=== PATIENT | female | born 1945 | race African-American/Black ===

== ENCOUNTER 2016-07-04 12:31 | Outpatient (CLI) | payer MEDICARE, OTHER ==
[~2016-07-04] VITALS: Ht 156.2 cm; Wt 108.1 kg
[2016-07-04] VITALS (13 sets, daily range): BP systolic 136–194; BP diastolic 60–83; PULSE 58–66; RESP 16–29; TEMP 97.6; O2SAT 94–100; Ht 156.2 cm; Wt 108.1 kg
[~2016-07-04 12:31] MED LIST: ACET-785 PO; ALBU6.7H4 IH; AMLO10TA2 PO; ASPI-1116 PO; CALC-278 PO; CLOP75TA PO; FA/M1TAB32 PO; FURO-33 PO; IPRA4AER PO; LORA10CA3 PO; MAGN400C PO; METO100T5 PO; NAPR-561 PO; NORMAL SALINE 1,000 ML IV SCH; PANT40TA27 PO; POTA20TA69 PO; PRED20TA PO; PREN-116 PO; TRAVATAN RIGHT EYE; VITA400C19 PO; [UNRECOGNIZED DRUG - OTHER] LEFT EYE
--- NOTE | 2016-07-04 12:37 | NUR ---
ADMIT PT ADMITTED TO ROOM 118 AT THIS TIME VIA AMBULATORY STATUS. PT REPOSITIONED SELF IN BED. PT ALERT AND ORIENTED. WILL CONTINUE TO MONITOR.
[2016-07-04] MEDS ORDERED: CHLO50TA PO (12:59)
[2016-07-04] MEDS ORDERED: POTA10CA37 PO (13:00)
--- NOTE | 2016-07-04 13:19 | HPPDOC ---
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 Mahoney who has a history of atherosclerotic heart disease, HTN, HLD, COPD nnrafael was seen in the clinic in April for recurrent precordial pain. She had an abnormal stress test in May which showed LAD ischemia. She is being admitted today for Left heart catheterization with possible PCI. 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 07/04/16 Metoprolol Tartrate (Metoprolol Tartrate) 100 Mg Tablet, 1 TAB PO BID 08/19/14 Vitamin E (Dl,Tocopheryl Acet) (Vitamin E) 400 Unit Capsule, 400 UNIT PO DAILY, CAP 08/19/14 Magnesium Oxide (Magnesium) 400 Mg Capsule, 800 MG PO DAILY, CAP 08/19/14 Pnv95/Ferrous Fumarate/FA ( Multivitamins Tablet) 1 Each Tablet, 1 TAB PO EVERY OTHER DAY, TAB 08/19/14 [Rachel-Optho] No Conflict Check, 1 DROP LEFT EYE PRN ARTIFICIAL LEFT EYE 08/19/14 [Travatan] No Conflict Check, 1 DROP RIGHT EYE HS 08/19/14 Ipratropium/Albuterol Sulfate (Combivent Respimat Inhal Godley) 120 Puff/4 Gm Inha, 1 PUFF PO QID, INHALER 11/19/13 Loratadine (Claritin) 10 Mg Capsule, 10 MG PO PRN 11/19/13 Amlodipine Besylate (Amlodipine Besylate) 10 Mg Tablet, 10 MG PO DAILY, TAB 11/19/13 Pantoprazole Sodium (Pantoprazole Sodium) 40 Mg Tablet.dr, 40 MG PO ACB, TAB Take 1 tablet, by mouth, daily before breakfast. 11/19/13 Naproxen Sodium (Aleve) 220 Mg Tablet, 220 MG PO PRN 02/15/10 Albuterol Sulfate (Proventil Hfa) 6.7 Gm Hfa.aer.ad, 2 PUFF IH PRN 11/25/09 Acetaminophen (Tylenol) 325 Mg Tablet, 650 MG PO PRN 11/25/09 Calcium Citrate/Vitamin D3 (Calcium Citrate + D Caplet) 1 Tab Tablet, 1 TAB PO BID 11/25/09 Allergies: Coded Allergies: oxycodone HCl (Verified Allergy, Intermediate, RASH, 07/04/16) PT HAD ITCHING AND RASH Adhesive Bandage (Verified Allergy, Mild, RASH, 07/04/16) Penicillins (Verified Allergy, Unknown, HIVES, 07/04/16) Sulfa (Sulfonamide Antibiotics) (Verified Allergy, Unknown, RASH, 07/04/16) amlodipine besylate (Verified Allergy, Unknown, RASH, 07/04/16) PT IS ON ACTUALLY ON THIS MEDICATION, AND HAS NOT DEVELOPED A RASH THIS TIME. PT UNSURE IF PREVIOUS REACTION WAS ACTUALLY FROM AMLODIPINE-11/20/13 ESHANND benazepril HCl (Verified Allergy, Unknown, PT CAN'T REMEMBER, 07/04/16) latex (Unverified Allergy, Unknown, RASH, 07/04/16) Family History FOUND: other (TIA -mother) Vaccines 11/22/12 Social History Smoking Status: Never smoker Alcohol Intake: former alcohol drinker Marital Status: Single Review of Systems Constitutional: REPORTS: weakness, DENIES: chills, dizziness, fever Eyes Vision: DENIES: blurring ENMT Hearing: DENIES: tinnitus Balance: DENIES: vertigo Sinuses: NOT FOUND: rhinorrhea Mouth/Throat: DENIES: sore throat Cardiovascular chest pain, DENIES: dyspnea on exertion, murmur Rhythm/Rate: DENIES: irregular beat, palpitations Pulmonary Respiratory: dyspnea, DENIES: cough, sputum GI Upper Abdomen: DENIES: nausea, vomiting Lower Abdomen: DENIES: diarrhea General: DENIES: dysuria Musculoskeletal General: cramps, pain (right shoulder and LEs) Lumbar: spasm Integumentary Skin: DENIES: rash, sores Neurological General: numbness (in extremities), other (balance disturbance), weakness Allergic/Immunological sneezing All Other Systems All Other Systems: Reviewed (remainder of 10-point ROS Neg.) Physical Exam General General Nourishment: well nourished, well developed, obese, apparent age Vital Signs Vital Signs Date Time Temp Pulse Resp B/P Pulse Ox O2 Delivery O2 Flow Rate FiO2 07/04/16 13:04 63 18 07/04/16 12:56 97.6 194/83 97 Room Air Height (Feet): 5 Height (Inches): 1.50 Telemetry Rhythm: Sinus Rhythm ENMT Brief: FOUND: mucosa moist Neck Brief: NOT FOUND: JVD, carotid bruits Respiratory Brief: FOUND: clear all alvares, equal bilaterally, NOT FOUND: rales , wheezes Cardiovascular (brief) Cardiac Brief: FOUND: regular rate, regular rhythm, NOT FOUND: click, gallop, murmur, pedal edema Abdomen (brief) Abdominal Brief: FOUND: BS normo active x4, soft, NOT FOUND: tender Integumentary (brief) Integumentary Brief: FOUND: dry, warm Neurologic RN Documented GCS Eye Opening: Verbal: Motor: Total: Psychiatric (brief) FOUND: alert, attentive, normal affect, oriented Laboratory Laboratory Tests Test 07/04/16 13:22 White Blood Count 9.3T/MM3 Red Blood Count 4.72M/MM3 Hemoglobin 14.3GM/DL Hematocrit 42.3% Mean Corpuscular Volume 89.6UM3 Mean Corpuscular Hemoglobin 30.3UUG Mean Corpuscular Hemoglobin Concent 33.8GM/DL RDW Standard Deviation 42.9FL Platelet Count 193T/MM3 Mean Platelet Volume 9.4UM3 Immature Granulocyte % (Auto) 0.1% Neutrophils (%) (Auto) 75.0% Lymphocytes (%) (Auto) 22.3% Monocytes (%) (Auto) 2.5% Eosinophils (%) (Auto) 0.0% Basophils (%) (Auto) 0.1% Absolute Immature Granulocyte (auto 0.01T/MM3 Absolute Neutrophils (auto) 7.0T/MM3 Absolute Lymphocytes (auto) 2.1T/MM3 Absolute Monocytes (auto) 0.2T/MM3 Absolute Eosinophils (auto) 0.0T/MM3 Absolute Basophils (auto) 0.0T/MM3 Turbidity < 20 Sodium Level 145MEQ/L Potassium Level 3.2MEQ/L Chloride Level 103MEQ/L Carbon Dioxide Level 28MEQ/L Anion Gap 14MEQ/L Blood Urea Nitrogen 18.0MG/DL Creatinine 0.7MG/DL Glomerular Filtration Rate Calc 83 BUN/Creatinine Ratio 26RATIO Glucose Level 132MG/DL Calculated Osmolality 283MOSM/KG Calcium Level 10.1MG/DL Icterus Index < 2 Chemistry Specimen Hemolysis < 15 EKG SR Assessment & Plan Problems: (1) Precordial pain Status: Chronic Assessment & Plan: Recent stress test failed. Left heart cath today (2) Atherosclerotic heart disease of [place] coronary artery without angina pectoris Status: Chronic Qualifiers: [place] vs. transplanted heart: [place] heart Qualified Codes: I25.10 - Atherosclerotic heart disease of [place] coronary artery without angina pectoris Assessment & Plan: Recent stress test failed. Left heart cath today (3) Essential (primary) hypertension Status: Chronic Assessment & Plan: well controlled on current therapy (4) Mixed hyperlipidemia Status: Chronic Assessment & Plan: continue current therapy (5) Chronic obstructive pulmonary disease Status: Chronic Qualifiers: Emphysema type: unspecified Assessment & Plan: PCP manages Plan/Intensity of Service Recent stress test failed. Left heart cath today Code Status Full Code Hospital Course Summary Disclaimer The hospital course summary below is not to be considered part of the above Progress Note. QIAN MAHONEY MD 07/06/16 1024: Past Medical History Current Medications Home Meds Active Scripts Aspirin *EC* (Ecotrin) 81 Mg Tablet, 324 MG PO DAILY, #30 TAB 11 Refills Prov:FAUSTINO SEWELL APRN 08/20/14 Reported Medications Potassium Chloride (Potassium Chloride) 10 Meq Capsule.er, 30 MEQ PO BIDWM, CAP Take 1 capsule, by mouth, two times a day with meals 07/04/16 Chlorthalidone (Chlorthalidone) 50 Mg Tablet, 1 TAB PO WB, TAB BEST TAKEN WITH FOOD. 07/04/16 Metoprolol Tartrate (Metoprolol Tartrate) 100 Mg Tablet, 1 TAB PO BID 08/19/14 Vitamin E (Dl,Tocopheryl Acet) (Vitamin E) 400 Unit Capsule, 400 UNIT PO DAILY, CAP 08/19/14 Magnesium Oxide (Magnesium) 400 Mg Capsule, 800 MG PO DAILY, CAP 08/19/14 Pnv95/Ferrous Fumarate/FA ( Multivitamins Tablet) 1 Each Tablet, 1 TAB PO EVERY OTHER DAY, TAB 08/19/14 [Rachel-Optho] No Conflict Check, 1 DROP LEFT EYE PRN ARTIFICIAL LEFT EYE 08/19/14 [Travatan] No Conflict Check, 1 DROP RIGHT EYE HS 08/19/14 Ipratropium/Albuterol Sulfate (Combivent Respimat Inhal Godley) 120 Puff/4 Gm Inha, 1 PUFF PO QID, INHALER 11/19/13 Loratadine (Claritin) 10 Mg Capsule, 10 MG PO PRN 11/19/13 Amlodipine Besylate (Amlodipine Besylate) 10 Mg Tablet, 10 MG PO DAILY, TAB 11/19/13 Pantoprazole Sodium (Pantoprazole Sodium) 40 Mg Tablet.dr, 40 MG PO ACB, TAB Take 1 tablet, by mouth, daily before breakfast. 11/19/13 Naproxen Sodium (Aleve) 220 Mg Tablet, 220 MG PO PRN 02/15/10 Albuterol Sulfate (Proventil Hfa) 6.7 Gm Hfa.aer.ad, 2 PUFF IH PRN 11/25/09 Acetaminophen (Tylenol) 325 Mg Tablet, 650 MG PO PRN 11/25/09 Calcium Citrate/Vitamin D3 (Calcium Citrate + D Caplet) 1 Tab Tablet, 1 TAB PO BID 11/25/09 Allergies: Coded Allergies: oxycodone HCl (Verified Allergy, Intermediate, RASH, 07/04/16) PT HAD ITCHING AND RASH Adhesive Bandage (Verified Allergy, Mild, RASH, 07/04/16) Penicillins (Verified Allergy, Unknown, HIVES, 07/04/16) Sulfa (Sulfonamide Antibiotics) (Verified Allergy, Unknown, RASH, 07/04/16) amlodipine besylate (Verified Allergy, Unknown, RASH, 07/04/16) PT IS ON ACTUALLY ON THIS MEDICATION, AND HAS NOT DEVELOPED A RASH THIS TIME. PT UNSURE IF PREVIOUS REACTION WAS ACTUALLY FROM AMLODIPINE-11/20/13 ESHANND benazepril HCl (Verified Allergy, Unknown, PT CAN'T REMEMBER, 07/04/16) latex (Unverified Allergy, Unknown, RASH, 07/04/16) Assessment & Plan Hospital Course Summary Hospital Course Summary After examining the patient I agree with the above assessment. I am involved in the formulation of the patient's plan of care. DELORES PARRISH APRN July 04, 2016 13:11 QIAN MAHONEY MD July 06, 2016 10:24
[2016-07-04 13:39] LABS: BASOPHILS % (AUTO) 0.1 % (0-2); HCT - HEMATOCRIT 42.3 % (36-46); HGB - HEMOGLOBIN 14.3 GM/DL (12-16); IMMATURE GRANULOCYTE # (AUTO) 0.01 T/MM3 (0.00-0.03); IMMATURE GRANULOCYTE % (AUTO) 0.1 % (0.0-0.5); LYMPHOCYTES # (AUTO) 2.1 T/MM3 (1-4.8); LYMPHOCYTES % (AUTO) 22.3 % (23-45); MEAN CORPUSCULAR HGB 30.3 UUG (26-34); MEAN CORPUSCULAR HGB CONC(MCHC 33.8 GM/DL (31-37); MEAN CORPUSCULAR VOLUME 89.6 UM3 (80-100); MEAN PLATELET VOLUME 9.4 UM3 (9.4-12.4); MONOCYTES # (AUTO) 0.2 T/MM3 (0-0.8); MONOCYTES % (AUTO) 2.5 % (0-9.0); RED BLOOD COUNT 4.72 M/MM3 (4.00-5.20); WBC - WHITE BLOOD COUNT 9.3 T/MM3 (4.5-11.0)
--- NOTE | 2016-07-04 14:25 | NUR ---
CM CM VISITED PT AND FRIEND. CM EXPLAINED ROLE AND PROVIDED CONTACT INFORMATION. PT PLANS TO RETURN HOME POST HOSPITAL STAY. PT DENIES NEEDS. PT IS AWARE TO CONTACT CM IF NEEDS ARISE.
--- NOTE | 2016-07-04 14:30 | NUR ---
TO [employer] PT TRANSPORTED TO [facility] [facility] AT THIS TIME VIA CART AND ACCOMPANIED BY STAFF. VITAL SIGNS STABLE ON ROOM AIR. INFORMED CONSENT OBTAINED. PT VOIDED PRIOR TO TRANSFER. WILL CONTINUE TO MONITOR.
[2016-07-04] MEDS ORDERED: LIDOCAINE 1% (10mg/ml) 30ml SDV ONE (14:31)
[2016-07-04] MEDS ORDERED: HEPARIN 1,000units in NS 500ml BAG IV ONE (14:31)
[2016-07-04] MEDS ORDERED: IOHEXOL 350mg/ml 200ml BOTTLE ONE (14:33)
[2016-07-04 14:40] LABS: ANION GAP 14 MEQ/L (5-15); BUN/CREATININE RATIO 26 RATIO (6-26); CALCIUM 10.1 MG/DL (8.4-10.2); CHLORIDE 103 MEQ/L (98-107); CO2 - CARBON DIOXIDE 28 MEQ/L (22-30); CREATININE 0.7 MG/DL (0.7-1.2); GLOMERULAR FILTRATION RATE 83; GLUCOSE 132 MG/DL (65-110); POTASSIUM 3.2 MEQ/L (3.6-5); SODIUM 145 MEQ/L (134-144)
[2016-07-04] MEDS ORDERED: FENTANYL 100mcg/2ml INJECTION ONE (14:40)
[2016-07-04] MEDS ORDERED: MIDAZOLAM 2mg/2ml INJECTION ONE (14:40)
[2016-07-04] MEDS ORDERED: VERAPAMIL 5mg/2ml INJECTION IV ONE (14:41)
[2016-07-04] MEDS ORDERED: NITROGLYCERIN 50mg/10ml INJECTION IV ONE (14:41)
[2016-07-04] MEDS ORDERED: POTASSIUM CHLORIDE 20 MEQ TABLET ONE (14:51)
--- NOTE | 2016-07-04 15:15 | NUR ---
RETURN PT RETURNED TO ROOM 120 AT THIS TIME VIA CART. PT TRANSFERRED SELF FROM CART TO BED. HOB ELEVATED. BED ALARM ON. VITAL SIGNS STABLE ON ROOM AIR. WILL CONTINUE TO MONITOR.
--- NOTE | 2016-07-04 18:00 | NUR ---
DISCHARGE PT DISCHARGED TO HOME AT THIS TIME IN THE COMPANY OF HER DAUGHTER. PT TRANSPORTED TO THE ER ENTRANCE BY WHEELCHAIR AND ACCOMPANIED BY STAFF. DISCHARGE INSTRUCTIONS INCLUDING DIET, ACTIVITY, MEDICATIONS, FOLLOW UP APPOINTMENT, REPORTABLE S/S, AND [facility] HEART CATH INSTRUCTIONS GIVEN AND REVIEWED WITH PATIENT. PT VERBALIZED UNDERSTANDING OF THESE INSTRUCTIONS AND HAD NO FURTHER QUESTIONS. IVL DISCONTINUED. ARMBAND REMOVED. PERSONAL BELONGINGS AND HOME MEDICATIONS RETURNED.
--- NOTE | 2016-07-04 18:47 | CVPROF ---
CARDIAC CATHETERIZATION PROCEDURES July 04, 2016 The patient is a pleasant 70-year-old lady with chest pressure and tightness and heaviness and was referred for further evaluation by cardiac catheterization and possible intervention. Informed consent was obtained after explaining the procedure and the potential risks to the patient who agreed to proceed with the procedure. PROCEDURE 1. Left heart catheterization. 2. Coronary angiography. 3. Left ventriculography. TECHNIQUE She was prepped and draped in the usual sterile techniques. Conscious sedation was performed using Versed and fentanyl. 1% lidocaine was used for local anesthesia. Using modified Seldinger technique, arterial access was obtained into the right radial artery with placement of a 6-Yemeni arterial sheath. 3000 units of heparin, 300 mcg of nitroglycerin, and 2.5 mg of verapamil were given through the arterial sheath. LEFT VENTRICULOGRAPHY Left ventriculography in single-plane ROD shallow projection showed normal LV systolic function with ejection fraction of about 65% with no mitral regurgitation or gradient across the aortic valve. CORONARY ANGIOGRAPHY Left main, left anterior descending and diagonals, left circumflex and marginals, and right coronary artery were all free of significant lesions. The patient tolerated the procedure well with no complications. IMPRESSION 1. No significant obstructive coronary artery disease. 2. Normal LV systolic function with ejection fraction of about 65%. PLAN Medical management. The patient may require noncardiac chest pain workup. JANAED
== END 2016-07-04 18:00 | disposition home or self-care (01) ==
LOC: CATH 12:31 → SRG 12:32 → CATH 18:00
PROVIDERS: ATTEND Internal Medicine Cardiovascular Disease
DX: R94.39 Abnormal result of other cardiovascular function study (principal); R07.2 Precordial pain; I25.10 Atherosclerotic heart disease of native coronary artery without angina pectoris; I10 Essential (primary) hypertension; E78.2 Mixed hyperlipidemia; J44.9 Chronic obstructive pulmonary disease, unspecified; M06.9 Rheumatoid arthritis, unspecified; K21.9 Gastro-esophageal reflux disease without esophagitis; Z79.1 Long term (current) use of non-steroidal anti-inflammatories (NSAID); Z79.82 Long term (current) use of aspirin; Z79.899 Other long term (current) drug therapy; Z96.653 Presence of artificial knee joint, bilateral; Z97.0 Presence of artificial eye
CPT/HCPCS: 36415; 80048; 85025; 93005; 93458; A9270; C1769; C1893; J1644; J2250; J3010; J3490; J7030; Q9967

== ENCOUNTER → 2016-07-07 | Outpatient (CLI) | payer MEDICARE, OTHER ==
[~2016-07-07] MED LIST changes: +CHLO50TA PO; -CLOP75TA PO; -FA/M1TAB32 PO; -FURO-33 PO; -NORMAL SALINE 1,000 ML IV SCH; +POTA10CA37 PO; -POTA20TA69 PO; -PRED20TA PO
--- NOTE | 2016-07-07 17:17 | DI ---
Indication: ITS.REASON: M25.561 RIGHT KNEE PAIN PROCEDURE: NM BONE SCAN, 3-PHASE: Encounter: Initial Comparison: 03/25/2009 whole body bone scan Technique: 27.5 mCi of Tc-99m MDP was administered intravenously. Posterior flow and anterior posterior and lateral blood pool images were obtained of both knees. Then two or three hour delayed images were obtained in the anterior, posterior, and lateral views of both knees. FINDINGS: For a pubic defects are seen within both the knees from bilateral knee prostheses. There is new increased radionuclide activity seen at the level of the right lateral tibial plateau of the right knee and near the tibial tubercle on the right as well. These were not present on prior exam and thus raises the question of possible loosening. Would recommend correlation with radiographs and clinical correlation. Mild activity at the left patella is again noted and is similar. IMPRESSION: There is new mild increased radionuclide activity at the right lateral tibial plateau region and the tibial tubercle at the expected location of the intramedullary component of the tibial plateau prosthesis. As these are new since prior exam, this raises the concern for possible loosening. However the findings are equivocal. Correlation with radiographs and clinical correlation is suggested. .
== END ==
LOC: IMA 08:43
PROVIDERS: ATTEND Orthopaedic Surgery
DX: M25.561 Pain in right knee (principal); R94.8 Abnormal results of function studies of other organs and systems
CPT/HCPCS: 78315; A9503

== ENCOUNTER → 2016-07-15 | Outpatient (CLI) | payer MEDICARE, OTHER ==
[~2016-07-15] MED LIST changes: +IOHEXOL 180 MG/ML 20ml INJECTION ONE; +LIDOCAINE 1% (10mg/ml) 5ml VIAL ONE; +MethylPREDNISolone ACETATE 40mg/1ml ONE
--- NOTE | 2016-07-15 10:48 | DI ---
Indication:ITS.REASON: M48.06 SPINAL STENOSIS, LUMBAR REGION; M54.17 RADICULOPATHY, LUMB Procedure:EPIDURAL INJ.SPINE W FLUO CATH LUMBAR EPIDURAL INJECTION: The patient has low back and radicular pain. The patient has not had any previous epidurals. The details of the procedure, including the benefits, risks, and alternatives were explained to the patient. All of their questions were answered. They stated that they understood and wished to proceed. Informed consent was then obtained. A pre-procedural timeout was performed to confirm the correct patient and procedure. Utilizing aseptic technique, local lidocaine anesthetic, and fluoroscopic guidance throughout, a 22-gauge spinal needle was directed into the lumbar epidural space via an interlaminar approach at the L5-S1 level. Contrast was injected to assure proper positioning of the needle tip. A fluoroscopic image was then taken and archived. Subsequently, 120 mg Depo-Medrol was injected into the epidural space. The patient tolerated the procedure well. IMPRESSION: Successful lumbar epidural steroid injection. Fluoroscopy dose: 30.07 mGy (Cumulative air kerma) Adrián Anton RPA/BRIDGER performed this under my personal supervision. .
== END ==
LOC: IMA 08:15
PROVIDERS: ATTEND Internal Medicine
DX: M48.06 Spinal stenosis, lumbar region (principal); M54.17 Radiculopathy, lumbosacral region
CPT/HCPCS: 62323; J1030; Q9965